=== PATIENT | female | born 1930 | race Caucasian/White ===

== ENCOUNTER → 2019-03-30 | Outpatient (CLI) | payer MEDICARE, BC ==
--- NOTE | 2019-03-30 11:56 | XR ---
EXAMINATION TYPE: XR ankle limited LT DATE OF EXAM: 03/30/2019 CLINICAL HISTORY: Left ankle pain and swelling after fall TECHNIQUE: Frontal and lateral images of the left ankle were obtained. COMPARISON: None. FINDINGS: Fragmented avulsion fracture of the medial malleolus with pronounced overlying soft tissue swelling, also seen laterally. Small Achilles and plantar heel spurs. Talar dome is intact. Ankle mor tise maintained alignment. No additional fracture seen. IMPRESSION: Acute appearing fragmented avulsion fracture of the distal aspect of the medial malleolus in the region of the deltoid ligament. Pronounced overlying soft tissue swelling of the left ankle.
== END | disposition home or self-care (01) ==
LOC: RADXRMAIN 11:23
PROVIDERS: ATTEND Family Medicine
DX: S93.422D Sprain of deltoid ligament of left ankle, subsequent encounter (principal)

== ENCOUNTER → 2019-12-07 | Outpatient (CLI) | payer MEDICARE, BC ==
--- NOTE | 2019-12-07 10:42 | CT ---
EXAMINATION TYPE: CT brain wo/w con DATE OF EXAM: 12/07/2019 COMPARISON: MR brain 09/17/2012 HISTORY: Unsteady gait CT DLP: 2262 mGycm Automated exposure control for dose reduction was used. CONTRAST: CT scan of the head is performed without and with IV Contrast, patient injected with 50 mL of Isovue 300. FINDINGS: There is no abnormal enhancing mass or midline shift identified. The ventricles and sulci are within normal limits in size for patient's age, there is cortical atrophy, periventricular white matter marycruz ws patchy low attenuation, there are cerebral vascular calcifications. 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 No abnormal enhancement following contrast administration. IMPRESSION: Age-related changes of atrophy and chronic small vessel ischemia. Sphenoid sinus disease.
== END | disposition home or self-care (01) ==
LOC: RADCTMAIN 08:00
PROVIDERS: ATTEND Family Medicine
DX: G31.1 Senile degeneration of brain, not elsewhere classified (principal); I67.82 Cerebral ischemia; Z91.048 Other nonmedicinal substance allergy status; Z88.1 Allergy status to other antibiotic agents
CPT/HCPCS: 70470; Q9967